=== PATIENT | female | born 1945 | race Caucasian/White ===

== ENCOUNTER → 2018-10-23 | Outpatient (CLI) | payer MEDICARE, OTHER ==
--- NOTE | 2018-10-23 15:25 | RADIOLOGY REPORT (SQ) ---
EXAM DESCRIPTION: UGI SERIES COMPLETED DATE/TIME: 10/23/2018 9:52 am REASON FOR STUDY: R11.11 VOMITING WITHOUT NAUSEA R11.11 VOMITING WITHOUT NAUSEA K44.9 DIAPHRAGMATI C HERNIA WITHOUT OBSTRUCTION OR GANGRENE COMPARISON: 10/23/2011 TECHNIQUE: Under fluoroscopic guidance, patient ingested effervescent granules followed by thick and thin barium. Fluoroscopic spot images and routine radiographic images acquired and stored on PACS. 12 MM BARIUM TABLET GIVEN: Yes. LIMITATIONS: None. FLUOROSCOPY TIME: FLUORO TIME: 1.8 minutes 14 images saved to PACS. FINDINGS: NEUROMUSCULAR COORDINATION OF SWALLOW: Normal. No aspiration. ESOPHAGEAL MOTILITY: Normal peristalsis. No esophageal spasm. ESOPHAGEAL MUCOSA: Normal mucosa without masses or ulceration. GASTRO-ESOPHAGEAL JUNCTION: Large hiatal hernia. No spontaneous reflux noted. STOMACH: Large hiatal hernia. Normal mucosa without mass or ulcers. GASTRIC OUTLET: No delay in emptying. Normal pylorus. DUODENAL BULB: Normal distention. No spasm or ulceration. DUODENUM: Mucosa normal. No extrinsic masses or malrotation. Small duodenum diverticulum. PROXIMAL SMALL BOWEL: Mucosa normal. No extrinsic masses or malrotation. NON-GI TRACT STRUCTURES: No significant finding. OTHER: Barium tablet passed without difficulty. IMPRESSION: Large hiatal hernia. No evidence of obstruction. No spontaneous reflux appreciated. Small duodenal diverticulum. COMMENT: Quality ID [id number]: Final reports for procedures using fluoroscopy that document radiation exp osure indices, or exposure time and number of fluorographic images (if radiation exposure indices are not available) TECHNICAL DOCUMENTATION: JOB ID: [id number] [employer]- All Rights Reserved Reading location - IP/workstation name: [email or web address]
== END ==
LOC: RAD 08:24
PROVIDERS: ATTEND Internal Medicine Gastroenterology
DX: K44.9 Diaphragmatic hernia without obstruction or gangrene (principal); R11.11 Vomiting without nausea
CPT/HCPCS: 74247

== ENCOUNTER → 2018-11-07 | Day surgery (SDC) | payer MEDICARE, OTHER ==
[~2018-11-07] MED LIST: LIDOCAINE 2% JELLY 5 ML TUBE ONE
== END ==
LOC: END 08:48
PROVIDERS: ATTEND Surgery
DX: K21.9 Gastro-esophageal reflux disease without esophagitis (principal)

== ENCOUNTER → 2019-02-12 | Outpatient (CLI) | payer MEDICARE, OTHER ==
--- NOTE | 2019-02-12 08:38 | WOMENS IMAGING REPORT ---
EXAM DESCRIPTION: BONE DENSITY HIP/SPINE COMPLETED DATE/TIME: 02/12/2019 8:29 am REASON FOR STUDY: Z78.0 ASYMPTOMATIC MENOPAUSAL STATE Z12.31 ENCNTR SCREEN MAMMOGRAM FOR MALIGNANT NEOPLASM OF LEE Z78.0 ASYMPTOMATIC MENOPAUSAL STATE COMPARISON: None. TECHNIQUE: Dual-Energy X-ray Absorptiometry (DEXA) of the AP Spine and Hip. LIMITATIONS: None. FINDINGS: LUMBAR SPINE: The bone mineral density (BMD) measured from L1-L4 in the AP projection correlates with a T-score of 1.5, which is normal as defined by the World Health Organization. BMD Change vs Baseline: N/A HIP: The bone mineral density (BMD) measured in the left hip correlates with a T-score of -1.4 in the neck , which is osteopenia as defined by the World Health Organization. BMD Change vs Baseline: N/A 10 year Fracture Risk Assessment: Major Osteoporotic Fracture: Not available. Hip Fracture: Not available. IMPRESSION: 1. LUMBAR SPINE WHO CLASSIFICATION: NORMAL. 2. HIP WHO CLASSIFICATION: OSTEOPENIA. OVERALL ASSESSMENT: WHO CLASSIFICATION: OSTEOPENIA. COMMENT: The World Health Organization defines low BMD as follows: T-score: Normal: Greater than -1.0 Osteopenia: Between -1.0 and -2.5 Osteoporosis: Less than -2.5 without fractures Established osteoporosis: Less than -2.5 with fractures In general, you may wish to consider: Diagnosis Treatment Follow-up DEXA Normal BMD Prevention 2-3 years Osteopenia Prevention/Therapy 1-2 years Osteoporosis Therapy Yearly TECHNICAL DOCUMENTATION: JOB ID: [id number] [employer]- All Rights Reserved Reading location - IP/workstation name: [email or web address]
--- NOTE | 2019-02-12 13:45 | WOMENS IMAGING REPORT ---
EXAM DESCRIPTION: BILAT SCREENING MAMMO W/CAD COMPLETED DATE/TIME: 02/12/2019 8:29 am REASON FOR STUDY: Z12.31 ENCOUNTER FOR SCREENING MAMMOGRAM FOR MALIGNANT NEOPLASM OF BREAST Z12.31 ENCNTR SCREEN MAMMOGRAM FOR MALIGNANT NEOPLASM OF LEE Z78.0 ASYMPTOMATIC MENOPAUSAL STATE COMPARISON: 2014 EXAM PARAMETERS: Standard craniocaudal and mediolateral oblique views of each breast recorded using digital acquisition. Read with the assistance of CAD. .[facility] - [employer] Coordinator Version 9.2 LIMITATIONS: None. FINDINGS: Findings present which are benign by mammographic criteria. No suspicious masses, calcifi cations or architectural distortion. Pertinent benign findings: Partially circumscribed mass in the upper outer quadrant right breast. St able appearance. Benign mammographic findings may include one or more of the following: Smooth masses, popcorn/rim/co arse calcifications, asymmetries, post-procedure changes, and lesions with long-standing stability. IMPRESSION: BENIGN MAMMOGRAPHIC FINDINGS. BIRADS 2 BREAST DENSITY: b. There are scattered areas of fibroglandular density. BIRAD: ASSESSMENT: 2 BENIGN FINDING(S) RECOMMENDATION: ROUTINE SCREENING COMMENT: The patient has been notified of the results by letter per MQSA requirements. Additional no tification policies are in place for contacting patient with suspicious or incomplete findings. Quality ID #225: The [place] [employer] recommends an annual screening mammogram for women aged 40 years or over. This facility utilizes a reminder system to ensure that all patients receive reminder letters, and/or direct phone calls for appointments. This includes reminders for routine scr eening mammograms, diagnostic mammograms, or other Breast Imaging Interventions when appropriate. Th is patient will be placed in the appropriate reminder system. TECHNICAL DOCUMENTATION: FINDING NUMBER: (1) ASSESSMENT: (1) JOB ID: [id number] [employer]- All Rights Reserved Reading location - IP/workstation name: [email or web address]
== END ==
LOC: WI 07:48
PROVIDERS: ATTEND Physician Assistant
DX: Z12.31 Encounter for screening mammogram for malignant neoplasm of breast (principal); Z78.0 Asymptomatic menopausal state; M85.88 Other specified disorders of bone density and structure, other site
CPT/HCPCS: 77067; 77080

== ENCOUNTER 2020-02-06 06:37 | Observation (INO) | payer MEDICARE, OTHER ==
--- NOTE | 2020-02-03 09:44 | EKG REPORT ---
SEVERITY:- NORMAL ECG - SINUS RHYTHM : Confirmed by: Hailey Schmitt 03-Feb-2020 09:44:16
[2020-02-03 10:35] LABS: HEMATOCRIT 39.4 % (36.0-47.0); HEMOGLOBIN 12.9 g/dL (12.0-15.5); MEAN CORPUSCULAR HEMOGLOBIN 28.3 pg (27.0-33.4); MEAN CORPUSCULAR HGB CONC 32.7 g/dL (32.0-36.0); MEAN CORPUSCULAR VOLUME 86 fl (80-97); PLATELET COUNT 263 10^3/uL (150-450); RED BLOOD COUNT 4.56 10^6/uL (3.72-5.28); RED CELL DISTRIBUTION WIDTH 14.7 % (11.5-14.0); WHITE BLOOD COUNT 4.8 10^3/uL (4.0-10.5)
[2020-02-03 10:57] LABS: ANION GAP 7 (5-19); BLOOD UREA NITROGEN 18 mg/dL (7-20); CALCIUM 9.7 mg/dL (8.4-10.2); CARBON DIOXIDE 28 mmol/L (22-30); CHLORIDE 104 mmol/L (98-107); GLUCOSE 97 mg/dL (75-110); POTASSIUM 4.7 mmol/L (3.6-5.0)
[~2020-02-06 06:37] MED LIST changes: +ACETAMINOPHEN 1,000 MG/100 ML RTUPB IV PRN; +CEFAZOLIN 2 GM/D5W RTU 2 GM/50 ML RTUPB IV ONE; +CEFAZOLIN 2 GM/D5W RTU 2 GM/50 ML RTUPB IV PRN; +IBUPROFEN 800 MG in NORMAL SALINE 250 ML IV PRN; +LACTATED RINGERS 1000 ML IV PRN; +LIDOCAINE 0.5% INJ-PF (5 MG/ML) 50 ML SDV SUBCUT PRN; -LIDOCAINE 2% JELLY 5 ML TUBE ONE; +RINGERS SOLUTION,LACTATED 1,000 ML IV PRN
[2020-02-06] MEDS ORDERED: MIDAZOLAM 2 MG/2 ML INJ ONE (07:19)
[2020-02-06] MEDS ORDERED: FENTANYL CITRATE INJ/PF 100 MCG/2 ML AMPUL ONE (07:19)
[2020-02-06] MEDS ORDERED: MORPHINE SULFATE 10 MG/ML INJ ONE (07:19)
[2020-02-06] MEDS ORDERED: PROPOFOL INJ 200 MG/20 ML VIAL IV ONE (07:20)
[2020-02-06] MEDS ORDERED: SUGAMMADEX SODIUM 200 MG/2 ML SDV IV ONE (07:23)
[2020-02-06] MEDS ORDERED: BUPIVACAINE HCL 0.25 % INJ/PF (2.5 MG/1 ML) 30 ML VIAL ONE (07:48)
[2020-02-06] MEDS ORDERED: SUCCINYLCHOLINE CHLORIDE INJ 200 MG/10 ML VIAL ONE (08:39)
[2020-02-06] MEDS ORDERED: GLYCOPYRROLATE 1 MG/5 ML VIAL ONE (08:39)
[2020-02-06] MEDS ORDERED: PHENYLEPHRINE HCL INJ/PF 10 MG/1 ML SDV ONE (08:39)
[2020-02-06] MEDS ORDERED: NEOSTIGMINE METHYLSULFATE 10 MG/10 ML VIAL ONE (08:39)
[2020-02-06] MEDS ORDERED: LIDOCAINE 2% INJ-PF (20 MG/ML) 2 ML AMPUL ONE (08:39)
[2020-02-06] MEDS ORDERED: ROCURONIUM BROMIDE INJ 50 MG/5 ML VIAL IV ONE (08:39)
[2020-02-06] MEDS ORDERED: ACETAMINOPHEN 1,000 MG/100 ML RTUPB IV ONE (08:43)
[2020-02-06] MEDS ORDERED: ONDANSETRON HCL INJ/PF 4 MG/2 ML SDV IV PRN ×2 (12:20→12:30)
[2020-02-06] MEDS ORDERED: DIPHENHYDRAMINE HCL 50 MG/ML VIAL IV PRN (12:20)
[2020-02-06] MEDS ORDERED: PROMETHAZINE HCL INJ 25 MG/1 ML VIAL IV PRN (12:20)
[2020-02-06] MEDS ORDERED: FENTANYL CITRATE INJ/PF 100 MCG/2 ML AMPUL IV PRN ×2 (12:20)
[2020-02-06] MEDS ORDERED: MEPERIDINE HCL/PF INJ 25 MG/1 ML DISP.SYRIN IV PRN (12:20)
[2020-02-06] MEDS ORDERED: MORPHINE SULFATE 10 MG/ML INJ IV PRN ×2 (12:20→12:30)
[2020-02-06] MEDS ORDERED: DEXTROSE 5%-1/2 NORMAL SALINE 1,000 ML IV PRN (12:36)
[2020-02-06] MEDS ORDERED: ONDANSETRON HCL INJ/PF 4 MG/2 ML SDV ONE (13:13)
[2020-02-07] MEDS: HYDROCOD/ACETAMIN 7.5-325 MG/15 ML ORAL SOLN UDCUP PO PRN ×2 (07:46→14:12)
--- NOTE | 2020-02-07 08:46 | RADIOLOGY REPORT (SQ) ---
EXAM DESCRIPTION: CHEST SINGLE VIEW IMAGES COMPLETED DATE/TIME: 02/07/2020 8:16 am REASON FOR STUDY: pain with inspiration COMPARISON: None. FINDINGS: One-view chest AP portable upright. Basilar areas of linear subsegmental atelectasis and patchy airspace disease. No pneumothorax, lungs are otherwise clear. Suspect mild cardiomegaly without congestive failure. TECHNICAL DOCUMENTATION: JOB ID: [id number] Reading location - IP/workstation name: [email or web address]
--- NOTE | 2020-02-07 14:50 | PDOC DISCHARGE SUMMARY ---
General - Admit/Disc Date/PCP Admission Date/Primary Care Provider: 02/06/20 06:48 STACY GAMBOA PA-C Discharge Date: 02/07/20 - Discharge Diagnosis Final Diagnosis: Hiatal hernia, reflux - Assessment Summary: This is a 75-year-old female status post robot-assisted laparoscopic hiatal hernia repair with mesh, and Toupet fundoplication. She is doing well today. She is swallowing without difficulty. Her pain medication is controlling her discomfort. She has been out of bed. Her chest x-ray looks good. At this time I believe she is reached maximal hospital benefit, and is fit for discharge. - Additional Information Resuscitation Status: Full Code Discharge Diet: Full Liquids - No carbonated beverages Discharge Activity: No Lifting Over 10 Pounds, No Lifting/Push/Pulling Referrals: STACY GAMBOA PA-C [Primary Care Provider] - Prescriptions: Hydrocodone/Acetaminophen [[place] 5-325 mg Tablet] 1 tab PO Q6HP PRN #20 tablet PRN Reason: For Pain Home Medications: Aspirin [Aspir-Low] 81 mg PO DAILY 02/03/20 Cholecalciferol (Vitamin D3) [Vitamin D3 1000 Unit Tablet] 2,000 unit PO DAILY 02/03/20 Magnesium Oxide [Magnesium] 400 mg PO DAILY 02/03/20 Multivitamin [Multivitamins] 1 each PO DAILY 02/03/20 Hydrocodone/Acetaminophen [[place] 5-325 mg Tablet] 1 tab PO Q6HP PRN #20 tablet 02/07/20 Additional Information: Discharge home. Diet: Full liquid, no carbonated beverages. Activity: No lifting greater than 10 pounds x 6 weeks. Okay to shower starting tomorrow. Follow-up with [facility] in 2 weeks. [place] 5/325 mg p.o. every 6 hours as needed for pain. History of Present Illiness History of Present Illness: YENNIFER DURAN is a 75 year old female Physical Exam Vital Signs: Temp Pulse Resp BP Pulse Ox 97.9 F 96 17 142/71 H 95 02/06/20 23:19 02/06/20 23:19 02/06/20 23:19 02/06/20 23:19 02/06/20 23:19 Intake & Output 07/24/20 07/25/20 07/26/20 06:59 06:59 06:59 Intake Total 2200 Output Total 335 Balance 1865 Weight 86.9 kg Results Laboratory Results: WBC 4.8 10^3/uL (4.0-10.5) 02/03/20 09:26 RBC 4.56 10^6/uL (3.72-5.28) 02/03/20 09:26 Hgb 12.9 g/dL (12.0-15.5) 02/03/20 09:26 Hct 39.4 % (36.0-47.0) 02/03/20 09:26 MCV 86 fl (80-97) 02/03/20 09:26 MCH 28.3 pg (27.0-33.4) 02/03/20 09:26 MCHC 32.7 g/dL (32.0-36.0) 02/03/20 09:26 RDW 14.7 % (11.5-14.0) H 02/03/20 09:26 Plt Count 263 10^3/uL (150-450) 02/03/20 09:26 Sodium 139.4 mmol/L (137-145) 02/03/20 09:26 Potassium 4.7 mmol/L (3.6-5.0) 02/03/20 09:26 Chloride 104 mmol/L (98-107) 02/03/20 09:26 Carbon Dioxide 28 mmol/L (22-30) 02/03/20 09:26 Anion Gap 7 (5-19) 02/03/20 09:26 BUN 18 mg/dL (7-20) 02/03/20 09:26 Creatinine 0.76 mg/dL (0.52-1.25) 02/03/20 09:26 Est GFR ( Amer) > 60 (>60) 02/03/20 09:26 Est GFR (MDRD) Non-Af > 60 (>60) 02/03/20 09:26 Glucose 97 mg/dL (75-110) 02/03/20 09:26 Calcium 9.7 mg/dL (8.4-10.2) 02/03/20 09:26 COVID-19 Source NASOPHARYNGEAL 02/03/20 09:20 COVID-19 (ISIAH) NOT DETECTED 02/03/20 09:20
[2020-02-07 17:29] VITALS: BP 143/66
--- NOTE | 2020-02-08 11:11 | Operative Report ---
Nonrecallable Operative Report DATE OF SURGERY: 02/06/20 PREOPERATIVE DIAGNOSIS: 1. Reflux. 2. Hiatal hernia POSTOPERATIVE DIAGNOSIS: 1. Reflux. 2. Hiatal hernia. 3. Gastritis, extensive OPERATION: 1. Robot-assisted laparoscopic hiatal hernia repair with [place] Bio-A mesh. 2. Toupet fundoplication. 3. EGD. 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 The patient could not tolerate esophageal manometry, and therefore has agreed to hiatal hernia repair with a partial fundoplication. All the risks and benefits of this approach were discussed with her on an outpatient basis. She is in agreement with the [facility] ent plan. Drains/implants: Ogden Bio-A hiatal hernia mesh. Procedure in detail: After informed consent was obtained, the patient was brought into the operating room and laid in the supine position. The area of the abdomen was prepped and draped in a normal sterile fashion. An incision was created 2 cm superior and to the left of the umbilicus. Dissection was carried through the subcutaneous tissues using sharp and blunt dissection. The anterior fascia was incised sharply, the rectus muscle was spread, and the posterior sheath was incised sharply. The balloon trocar was then inserted, and pneumoperitoneum was achieved. 8 mm robotic trochars were placed in the left upper quadrant and left lateral abdominal wall, as well as the right upper quadrant. A 5 mm traditional laparoscopic trocar was placed in the right lateral abdominal wall. The liver retractor was then placed into the patient, and secured to the bed. This helped to retract the left lobe of the liver anteriorly. Once the liver retractor was in place, the robot was brought over the patient and docked appropriately. I then assumed my position at the surgeon's console. Attention was turned to dissection at the pars flaccida. The hernia defect was large, however the stomach was easily retracted back into the abdominal cavity. The pars flaccida was divided using electrocautery. The right stephanie was then exposed, and cleaned. The dissection was carried posteriorly, to the confluence of the right and left stephanie. This was done using blunt dissection and electrocautery. Once the left stephanie was identified, the posterior dissection was undertaken. The left stephanie was cleaned posteriorly, until further dissection became difficult. At this time, attention was turned to the division of the short gastric arteries and mobilization of the fundus. The robotic vessel sealing device was used to divide the short gastric arteries, adjacent to the fundus. This was done all the way up to the left stephanie. At this time the lateral dissection and posterior dissections met. Once this was completed, a [place] drain was placed posteriorly in order to facilitate retraction of the stomach and esophagus. Next attention was turned to the anterior dissection and freeing of the distal esophagus. This was done using electrocautery and blunt dissection. The stomach and hernia sac were reduced into the abdominal cavity via tension on the [place] drain. The anterior dissection was performed very carefully, so as not to injure the vagus nerve. The vagus nerve was identified and spared along its course. Dissection was carried up the esophagus, freeing the esophagus from the mediastinum. This was done in order to ensure 2 to 3 cm of intra-abdominal esophagus. Again, this was done very carefully with blunt dissection and electrocautery. Once the esophagus was adequately freed, and moved to an intra- abdominal position, attention was turned to closure of the hiatal hernia defect. A 58 [place] bougie was gently inserted into the esophagus and stomach by anesthesia. This was watched via laparoscopy to ensure a smooth insertion. Next, 2-0 Ethibond suture was used in [id number] fashion to close the pos terior defect. Multiple sutures were required. After closure of the posterior defect, the anterior opening appeared patulous. As a result, a single [id number] suture was used to narrow the anterior aperture. After this was completed, the defect appeared in good order. Next, the [place]den Bio-A hiatal hernia mesh was inserted into the abdomen. It was situated over the posterior repair. It was sutured to the repair using 2-0 Ethibond suture at multiple points. Once complete, the mesh was found to lie in good position. Next a partial fundoplication was undertaken. The fundus was wrapped posteriorly, and sutured to the anterior esophagus and stomach. This was done in Toupet fashion. The first suture secured the fundus to esophagus (taking care to avoid the vagus nerve). 3 more sutures were used to fix the fundus to the anterior stomach. This was done in simple, interrupted fashion. Once this was complete, the posterior fundus was sutured to the hernia mesh (to help secure the stomach within the abdominal cavity). Once this was completed, attention was turned to performing of the EGD. The flexible gastroscope was inserted down the esophagus, and into the stomach. The Z line appeared to lie within the abdominal cavity. The scope moved through the hiatus easily, without evidence of obstruction. Within the stomach, there was noted to be severe gastritis with several shallow antral ulcerations. Retroflexion maneuver was performed, demonstrating an intact fundoplication. The scope was then withdrawn into the distal esophagus. There was no evidence of trauma or damage to the mucosa. There were no linear ulcerations, or evidence of perforation. Once this was completed, air was suctioned from the stomach and esophagus, and the gastroscope was removed from the patient. I then scrubbed back into the case. The robot was undocked, the liver retractor was removed, and attention was turned to closure. The supraumbilical incision was closed using 0 Vicryl suture in [id number] fashion. The overlying skin was closed using 4-0 Vicryl Rapide suture in subcuticular fashion. Dressings were then placed, and the procedure was concluded. All sponge, instrument, and needle counts were correct x2. Condition: Stable. Ana Barrios PA-C was scrubbed and present the entirety of the procedure. She assisted with all portions of the procedure including opening of the abdomen, placement of the liver retractor, docking of the robot, exchanging of the robotic instruments, closure of the fascia, and closure of the skin.
== END 2020-02-07 15:41 | disposition home or self-care (01) ==
LOC: INTOOBSV 06:48 → INOR 06:48 → 4S 13:47
PROVIDERS: ADMIT Surgery; ATTEND Surgery
DX: K21.9 Gastro-esophageal reflux disease without esophagitis (principal); K44.9 Diaphragmatic hernia without obstruction or gangrene; K29.70 Gastritis, unspecified, without bleeding; K25.9 Gastric ulcer, unspecified as acute or chronic, without hemorrhage or perforation; K56.2 Volvulus; M25.50 Pain in unspecified joint; Z03.818 Encounter for observation for suspected exposure to other biological agents ruled out; Z90.710 Acquired absence of both cervix and uterus; Z01.818 Encounter for other preprocedural examination
CPT/HCPCS: 43280; 93005; 36415; 85027; 80048; 71045; 93010; 00790; C1758; C1781; U0003; J2250; J3490 ×4; J3010; J2270; J2710; J2370; J0330; J2405; J7050; J7120; J2704; J0690; J0131; A9270; J1741; C9803; 790; 87635; G0378